=== PATIENT | female | born 2005 | race African-American/Black ===

== ENCOUNTER 2024-04-26 10:23 | Emergency (ER) | payer OTHER ==
[~2024-04-26] VITALS: Ht 182.9 cm; Wt 66.3 kg
[2024-04-26 11:28] VITALS: BP 120/84; PULSE 74; RESP 18; TEMP 98.9; O2SAT 100
--- NOTE | 2024-04-26 12:09 | ED.PDOC ---
General HPI Comments A 18 YEAR OLD FEMALE PRESENTS TO THE ED WITH CHIEF COMPLAINT OF PELVIC PAIN. PATIENT REPORTS THAT SHE HAS BEEN EXPERIENCING INTERMITTENT BILATERAL PELVIC PAIN FOR THE PAST 2 MONTHS. PATIENT DENIES ANY DYSURIA, HEMATURIA, VAGINAL BLEEDING, ABDOMINAL PAIN, FEVER, OR CHILLS. NO OTHER SYMPTOMS REPORTED AT THIS TIME OF CARE. Chief Complaint: Pelvic Pain Time Seen by MD: 12:05 Reviewed notes: Nurses Notes, Medications, Allergies Home Meds Active Scripts Naproxen (Naproxen) 500 Mg Tab, 500 MG PO BID, #30 TAB Prov:CHRISTINA TAYLOR 04/26/24 Information Source: Patient Mode of Arrival: Ambulatory Severity: Mild, Moderate Inability to void: None Timing: Months Duration: Since onset, Intermittent, Days Prehospital treatment: None Onset: Spontaneous Symptoms: None History of: None Location: None Modifying factors: None associated signs and symptoms: Other (PELVIC PAIN) Past Medical History PAST MEDICAL HISTORY: Denies Surgical History: Denies all surgeries STREET LIGHT WIRER History: No Pertinent STREET LIGHT WIRER History Family History Family History: Reviewed,noncontributory to illness Social History Smoker: Non-Smoker Alcohol: Denies ETOH Use Drugs: Denies Drug Use Lives In: Home Constitutional: denies: chills, diaphoresis, fatigue, fever, malaise, sweats, weakness, others EENTM: denies: blurred vision, double vision, ear bleeding, ear discharge, ear drainage, ear pain, ear ringing, eye pain, eye redness, hearing loss, mouth pain, mouth swelling, nasal discharge, nose bleeding, nose congestion, nose pain, photophobia, tearing, throat pain, throat swelling, voice changes, others Respiratory: denies: cough, hemoptysis, orthopnea, SOB at rest, shortness of breath, SOB with excertion, stridor, wheezing, others Cardiovascular: denies: chest pain, dizzy spells, diaphoresis, Dyspnea on exertion, edema, irregular heart beat, left arm pain, lightheadedness, palpit ations, PND, syncope, others Gastrointestinal: denies: abdomen distended, abdominal pain, blood streaked b owels, constipated, diarrhea, dysphagia, difficulty swallowing, hematemesis, melena, nausea, poor appetite, poor fluid intake, rectal bleeding, rectal pain, vomiting, others Genitourinary: reports: pain (PELVIC ); denies: abnormal vagina bleeding, burning, dyspareunia, dysuria, flank pain, frequency, hematuria, incontinence, , vagina discharge, urgency, others Neurological: denies: dizziness, fainting, headache, left sided numbness, left sided weakness, numbness, paresthesia, pre-existing deficit, right sided numbness, right sided weakness, seizure, speech problems, tingling, tremors, weakness, others Musculoskeletal: reports: others (BILATERAL PELVIC PAIN); denies: back pain, gout, joint pain, joint swelling, muscle pain, muscle stiffness, neck pain Integumetry: denies: bruises, change in color, change in hair/nails, dryness, laceration, lesions, lumps, rash, wounds, others Allergic/Immunocompromised: denies: Difficulty Healing, Frequent Infections, Hives, Itching, others Hematologic/Lymphatic: denies: anemia, blood clots, easy bleeding, easy bruising, swollen glands, others Endocrine: denies: excessive hunger, excessive sweating, excessive thirst, excessive urination, flushing, intolerance to cold, intolerance to heat, unexplained weight gain, unexplained weight loss, others Psychiatric: denies: anxiety, bipolar disorder, depression, hopeless, panic disorder, schizophrenia, sleepless, suicidal, others All Other Systems: Reviewed and Negative Physical Exam General Appearance: No Apparent Distress, Normal HEENT: Normal ENT Inspection, PERRL/EOMI Neck: Full Range of Motion, Non-Tender, Normal, Normal Inspection Respiratory: Chest Non-Tender, Lungs Clear, No Accessory Muscle Use, No Respiratory Distress, Normal Breath Sounds Cardiovascular: No Edema, No JVD, No Murmur, No Gallop, Normal Peripheral Pulses, Regular Rate/Rhythm Breast Exam: Deferred Gastrointestinal: No Organomegaly, Non Tender, No Pulsatile Mass, Normal Bowel Sounds, Soft Genitalia: Deferred Pelvic: Normal External Exam, Other (MILD TENDERNESS PELVIC, NO GUARDING AND REBOUND TENDERNESS. ) Rectal: Deferred Extremities: No calf tenderness, Normal capillary refill, Normal inspection, Normal range of motion, Non-tender, No pedal edema Musculoskeletal : Apperance: Normal Neurologic: Alert, check pilot II-XII nml as Tested, No Motor Deficits, Normal Affect, Normal Mood, No Sensory Deficits Cerebellar Function: Normal Reflexes: Normal Skin: Dry, Normal Color, Warm Peripheral Pulses: 2+ carotid (R), 2+ carotid (L) Lymphatic: No Adenopathy Was a procedure done? Was a procedure done?: No Differential Diagnosis Kidney stone (Female): Strain Urinary Problem (Female): PID, UTI, Vaginitis, Other (PELVIC PAIN ) X-Ray, Labs, Meds, VS Vital Signs Date Time Temp Pulse Resp B/P (MAP) Pulse Ox O2 Delivery O2 Flow Rate FiO2 04/26/24 11:28 98.9 74 18 120/84 (96) 100 98.9 04/26/24 11:28 74 18 100 Room Air 04/26/24 10:47 98.9 74 18 120/84 (96) 100 Lab Test 04/26/24 11:30 Range/Units Urine Color Yellow Yellow Urine Clarity Turbid H Clear Urine pH 7.5 5.0-9.0 Urine Specific [place] 1.030 1.001-1.035 Urine Protein Trace H Negative Urine Ketones Negative Negative Urine Blood Negative Negative /uL Urine Nitrite Negative Negative Urine Bilirubin Negative Negative Urine Urobilinogen Normal Negative mg/dL Urine Leukocyte Esterase Negative Negative /uL Urine RBC 2 0 - 4 /hpf Urine Microscopic WBC < 1 0-5 /HPF Urine Squamous Epithelial Cells Few <5 /hpf Urine Amorphous Crystals Few None Seen /hpf Urine Bacteria Few H None Seen /hpf Urine Mucus Few None Seen Urine Glucose Normal Normal mg/dL Urine Test Negative Negative OB US: Findings: Same-day quantitative beta-hCG is not available. Uterus measures 8.3 x 4.8 x 3.6 cm in size with relatively homogeneous echotexture and normal contours. Endometrial thickness measures 1.3 cm with smooth contour. Cervix appears grossly unremarkable. Right ovary measures 3.7 x 2.9 x 2.0 cm. Left ovary measures 3.8 x 2.6 x 2.2 cm. Normal ovarian color Doppler flow to the bilateral ovaries. Mild free fluid in the cul-de-sac. Impression: 1. Uterus grossly unremarkable with mildly thickened endometrium measuring 1.3 cm. Correlate with phase of menstrual cycle. 2. Bilateral ovaries within normal limits with normal color flow. X-Ray, Labs, Meds, VS Comment EXTERNAL MEDICAL RECORDS REVIEWED: [NONE] INDEPENDENT HISTORIANS: [NONE] SOCIAL DETERMINANTS OF HEALTH: [NONE] LABS ORDERED: UA, PREG URINE REVIEWED AND INTERPRETED RESULTS: PELVIC US IMAGING ORDERED: PELVIC US TREATMENTS ORDERED: PROCEDURES PERFORMED: NONE CRITICAL CARE TIME: NONE I HAVE DISCUSSED THE PATIENT WITH THE ATTENDING PHYSICIAN DR. CARABALLO AND HE AGREES WITH THE PATIENT'S PLAN OF CARE AND DISPOSITION. BASED ON HISTORY OF PRESENT ILLNESS, AND PHYSICAL EXAM, PATIENT WILL BE DISCHARGED HOME. DISCUSSED PLAN FOR DISCHARGE HOME WITH RX. MEDICATION WARNINGS GIVEN. SHARED DECISION MAKING: DISCUSSED WITH PATIENT THAT THEIR WORKUP WAS NORMAL. PATIENT INSTRUCTED TO FOLLOW UP WITH PRIMARY CARE PROVIDER IN 1-2 DAYS FOR RE-E VALUATION OF SYMPTOMS. PATIENT VERBALIZES UNDERSTANDING TO RETURN TO ED FOR NEW OR WORSENING SYMPTOMS OR IF FOLLOW UP WITH PCP CANNOT BE OBTAINED. PATIENT FEELS COMFORTABLE GOING HOME AT THIS TIME. ALL QUESTIONS ADDRESSED AT TIME OF DISCHARGE. Time of 1ST Reevaluation: 12:35 Reevaluation 1ST: Unchanged Patient Education/Counseling: Diagnosis, Treatment, Need For Follow Up Family Education/Counseling: Diagnosis, Treatment, No Family Present Medical Screening: No EMC Exist At This Time Departure 1 Departure Time of Disposition: 13:34 Impression: Primary Impression: Pelvic pain Disposition: 01 HOME / SELF CARE / HOMELESS Condition: Stable Additional Instructions: FOLLOW-UP WITH PCP IN 1 TO 2 DAYS. TAKE MEDICATIONS PRESCRIBED. RETURN TO ED FOR ANY NEW OR WORSENING SYMPTOMS. e-Prescriptions Naproxen (Naproxen) 500 Mg Tab 500 MG PO BID, #30 TAB Prov: CHRISTINA TAYLOR 04/26/24 Discharged With: Self Critical Care Note Critical Care Time?: No Stability Stability form required: No Heart Score Heart Score: Heart Score Response (Comments) Value History N/A 0 EKG N/A 0 Age N/A 0 Risk Factors N/A 0 Troponin N/A 0 Total 0 I personally scribed for CHRISTINA TAYLOR ([email or web address]) on 04/26/24 at 12:09. Bebe ctronically submitted by Ish Glover ([email or web address]). I personally scribed for CHRISTINA TAYLOR ([email or web address]) on 04/26/24 at 13:19. Elect ronically submitted by Ish Glover ([email or web address]). CHRISTINA TAYLOR Apr 26, 2024 12:09
[2024-04-26 12:16] LABS: Urine Amorphous Crystal FEW /hpf (None Seen); Urine Bacteria FEW /hpf (None Seen); Urine Blood Negative /uL (Negative); Urine Clarity Turbid (Clear); Urine Color Yellow (Yellow); Urine Mucus FEW (None Seen); Urine Protein, UAD TRACE (Negative); Urine Squamous Epithelial Cell FEW /hpf (<5); Urine Urobilinogen Normal (Negative); Urine pH 7.5 (5.0-9.0)
[2024-04-26 12:17] LABS: Urine WBC < 1 /HPF (0-5)
--- NOTE | 2024-04-26 13:06 | DVH ---
EXAM: US PELVIC CLINICAL HISTORY: PELVIC PAIN X 2 MONTHS TECHNIQUE: Transabdominal ultrasound of the pelvis with color Doppler flow as clinically indicated. COMPARISON: None Findings: Same-day quantitative beta-hCG is not available. Uterus measures 8.3 x 4.8 x 3.6 cm in size with relatively homogeneous echotexture and normal contour s. Endometrial thickness measures 1.3 cm with smooth contour. Cervix appears grossly unremarkable. Right ovary measures 3.7 x 2.9 x 2.0 cm. Left ovary measures 3.8 x 2.6 x 2.2 cm. Normal ovarian colo r Doppler flow to the bilateral ovaries. Mild free fluid in the cul-de-sac. Impression: 1. Uterus grossly unremarkable with mildly thickened endometrium measuring 1.3 cm. Correlate with pha se of menstrual cycle. 2. Bilateral ovaries within normal limits with normal color flow.
[2024-04-26] MEDS ORDERED: NAPR-746 PO (13:30)
== END 2024-04-26 13:41 | disposition home or self-care (01) ==
LOC: ER 10:23
DX: R10.2 Pelvic and perineal pain (principal)
CPT/HCPCS: 76856; 81001; 81025